=== PATIENT | female | born 1970 | race American Indian/Alaskan Native ===

== ENCOUNTER 2017-12-15 07:56 | Outpatient (CLI) | payer MEDICARE, OTHER ==
[2017-12-15 08:47] LABS: Blood Urea Nitrogen 14 mg/dL (7-17)
--- NOTE | 2017-12-15 09:54 | Cat Scan Report ---
CT ABDOMEN PELVIS WITH CONTRAST: HISTORY: Venous insufficiency. COMPARISON: None. TECHNIQUE: Helical CT in 1.25mm intervals following IV contrast. Delayed venous images were also obtained. Sagittal and coronal reconstructions. FINDINGS: Lung bases: Normal. Liver: Normal. Biliary system: Normal. Pancreas: Normal. Spleen: Normal. Kidneys/ureters/bladder: Normal. Adrenal glands: Normal. Aorta: Normal. Venous structures: Delayed images through the abdomen and pelvis demonstrate normal filling of the IVC, common iliac veins, internal iliac veins and external iliac veins. No thrombosis, occlusion or compression is identified. No findings to suggest May-Thurner syndrome. Intestines: There are a few scattered diverticula in the distal colon. No obstruction or focal inflammation. Appendix: Normal. Pelvic viscera: A few small uterine fibroids are suspected. The adnexa are unremarkable. Ascites: None. Adenopathy: None. Musculoskeletal: Normal. IMPRESSION: No acute process in the abdomen or pelvis. Question mild uterine fibroid disease. No venous abnormality is detected on delayed images. See above.
== END 2017-12-15 07:57 | disposition home or self-care (01) ==
LOC: CT 07:56
PROVIDERS: ATTEND Surgery Vascular Surgery
DX: I87.2 Venous insufficiency (chronic) (peripheral) (principal); K57.30 Diverticulosis of large intestine without perforation or abscess without bleeding
CPT/HCPCS: 36415; 74177; 82565; 84520; Q9967